=== PATIENT | male | born 1975 | race Caucasian/White ===

== ENCOUNTER 2017-06-18 14:21 | Emergency (ER) | payer MEDICAID, OTHER ==
[2017-06-18] MEDS ORDERED: PROMETHAZINE HCL 25 MG/ML INJ ONE (14:39)
[2017-06-18] MEDS ORDERED: FAMOTIDINE 20 MG TAB PO ONE (14:39)
[2017-06-18] MEDS ORDERED: ONDANSETRON 4 MG/2 ML VIAL IVP ONE (14:39)
[2017-06-18] MEDS ORDERED: PROMETHAZINE HCL 25 MG/ML INJ IVP ONE (14:39)
[2017-06-18] MEDS ORDERED: NS 1,000 ML IV ONE (14:39)
[2017-06-18] MEDS ORDERED: PANTOPRAZOLE SODIUM 40 MG VIAL IVP ONE (14:39)
[2017-06-18] MEDS ORDERED: HALOPERIDOL LACT 5 MG/ML INJ IVP ONE ×2 (14:40→15:47)
[2017-06-18 14:47] LABS: % IMMATURE GRANULYOCYTES 0.4 % (0.0-1.1); ABSOLUTE IMMATURE GRANULOCYTES 0.06 10^3/uL (0.00-0.10); ADD DIFF? NO; ADD MORPH? NO; ADD SCAN? NO; ATYPICAL LYMPHOCYTE FLAG 0 (0-99); FRAGMENT RBC FLAG 0 (0-99); HEMATOCRIT 44.1 % (40.0-51.0); HEMOGLOBIN 15.8 g/dL (13.7-17.5); LEFT SHIFT FLG 0 (0-99); LIPEMIA HEMOLYSIS FLAG 90 (0-99); MEAN CELL HEMOGLOBIN 32.1 pg (27.9-34.1); MEAN CELL HEMOGLOBIN CONCENTR. 35.8 g/dL (32.4-36.7); MEAN CELL VOLUME 89.6 fL (81.5-99.8); MEAN PLATELET VOLUME 10.3 fL (8.7-11.7); PLATELET CLUMPS FLAG 0 (0-99); PLATELET COUNT 279 10^3/uL (150-400); RED BLOOD CELL COUNT 4.92 10^6/uL (4.40-6.38); RED CELL DISTRIBUTION WIDTH 12.6 % (11.5-15.2)
--- NOTE | 2017-06-18 14:47 | EDPHY ---
H & P Smoking Status: Heavy smoker Time Seen by Provider: 06/18/17 14:27 HPI/ROS: HPI Vomiting, upper abdominal discomfort. 42-year-old male from the office of his primary care physician Dr. Morris. Patient presented to the office with complaint of intractable vomiting and epigastric discomfort. The patient was seen in the emergency department at [facility] yesterday for the same complaint. He was noted to have a leukocytosis but otherwise his blood work including lipase and LFTs were unremarkable. He had a nonsurgical abdomen. He had complete resolution of his symptoms in the emergency department at that time after medical treatment and was discharged. He was seen at [facility] emergency department for the same complaint 3 days ago on June 14. Included in his workup at that time with blood work was a CT of his abdomen and pelvis with contrast. The appendix was well visualized and was normal. This study other than a fatty liver showed no acute pathology. He reports that he felt better after his emergency department yesterday at [facility]. He was given antiemetics and a narcotic pain medication. He reports his last meal was some soup last night. He reports that he felt nauseous when he woke up this morning and then started vomiting again at 1:00 p.m. and has not been able to stop. 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 ROS: Constitutional: No fever, no chills. No weakness. Eyes: No discharge. No changes in vision. ENT: No sore throat. No nasal congestion or rhinorrhea. Respiratory: No cough. No shortness of breath. Cardiac: No chest pain, no palpitations. Gastrointestinal: As above, no diarrhea. Genitourinary: No hematuria. No dysuria or increased frequency with urination. Musculoskeletal: No back pain. No neck pain. No myalgias or arthralgias. Skin: No rashes. Neurological: No headache. No focal weakness or altered sensation. Past medical history: Includes arthritis, back pain, chronic abdominal pain, chronic pain, fatty liver, GERD without esophagitis, psoriasis. Social history: He is . He is a smoker. Denies alcohol use. Smokes marijuana. Physical Exam: General Appearance: Alert, no distress. This patient is responding to questions appropriately and in full sentences. This patient appears well- hydrated and well-nourished. Eyes: Pupils equal and round no pallor or injection. No lid edema, erythema or injection. ENT, Mouth: Mucous membranes are moist. The pharyngeal tissues are unremarkable. No edema or swelling. No asymmetry suggestive of abscess. No erythema or exudates. Respiratory: There are no retractions, lungs are clear to auscultation with good air movement bilaterally. Cardiovascular: Regular rate and rhythm. No murmur. Gastrointestinal: Abdomen is soft and nontender, no masses, bowel sounds normal. No focal tenderness at McBurney's point. No Bell sign. Neurological: Motor sensory function is grossly intact. Cranial nerves are normal. Gait is normal. Skin: Warm and dry, no rashes. Musculoskeletal: Neck is supple and nontender. Extremities are symmetrical. All joints range without pain or impingement. Psychiatric: No agitation. No depression. Database: EKG: Imaging: Procedures: Emergency department course: 2:45 p.m., IV placed. He was started on IV normal saline with 1-2 L to be given over the next 1-2 hours. Initial medications will include IV Protonix, IV Pepcid, IV Zofran, Phenergan and Haldol. His vital signs have been reviewed. He is moderately hypertensive in triage. Vital signs are otherwise normal. 3:00 p.m., the patient has just been medicated. Blood work is pending. Care turned over to Dr. Emil Yuen at this time. Differential Diagnosis: The differential diagnosis on this patient includes but is not limited to cyclic vomiting syndrome, cannabis associated hyperemesis syndrome, gastritis. Bowel obstruction, volvulus, appendicitis, cholecystitis, other surgical etiology unlikely. This represents a partial list of diagnoses considered. These considerations are based on history, physical exam, past history, reassessment and diagnostic testing. (Edil Nunez) Constitutional: Initial Vital Signs Temperature (C) 37 C 06/18/17 14:25 Heart Rate 77 06/18/17 14:25 Respiratory Rate 18 06/18/17 14:25 Blood Pressure 170/100 H 06/18/17 14:25 O2 Sat (%) 97 06/18/17 14:25 O2 Delivery Mode Room Air Allergies/Adverse Reactions: NSAIDS (Non-Steroidal Anti-Inflamma Allergy (Verified 06/18/17 14:33) Home Medications: Medication Instructions Recorded Compazine 10mg (*) 06/18/17 Dicyclomine 06/18/17 Ondansetron 06/18/17 PROMETHAZINE HCL 06/18/17 Pantoprazole Sodium 06/18/17 Probiotic Acidophilus 06/18/17 Promethazine 25Mg Supp Prepk#4 1 btl TAKEHOME Q6 PRN #1 btl 06/18/17 [Phenergan 25Mg Supp Prepack#4] Promethazine HCl [Phenergan 50mg 50 mg PO Q6 PRN #6 tablet 06/18/17 tab] Zanaflex 06/18/17 Medical Decision Making ED Course/Re-evaluation: Patient had ongoing symptoms of nausea treated with an additional dose of Haldol and Benadryl IV with relief. He tolerated p.o. intake thereafter without emesis. Review of his metabolic panel reveals no significant abnormalities. Also no significant abnormalities on his urinalysis. Discussion: Patient with presentation consistent with his recurrence hyper emesis with dehydration improved with treatment. (Jerome Yuen) - Data Points Laboratory Results: Laboratory Results 06/18/17 14:40 06/18/17 14:40 06/18/17 06/18/17 06/18/17 16:00 14:40 14:40 WBC 16.29 10^3/uL H 10^3/uL (3.80-9.50) RBC 4.92 10^6/uL 10^6/uL (4.40-6.38) Hgb 15.8 g/dL g/dL (13.7-17.5) Hct 44.1 % % (40.0-51.0) MCV 89.6 fL fL (81.5-99.8) MCH 32.1 pg pg (27.9-34.1) MCHC 35.8 g/dL g/dL (32.4-36.7) RDW 12.6 % % (11.5-15.2) Plt Count 279 10^3/uL 10^3/uL (150-400) MPV 10.3 fL fL (8.7-11.7) Neut % (Auto) 77.1 % H % (39.3-74.2) Lymph % (Auto) 17.2 % % (15.0-45.0) Cross % (Auto) 4.8 % % (4.5-13.0) Eos % (Auto) 0.2 % L % (0.6-7.6) Baso % (Auto) 0.3 % % (0.3-1.7) Nucleat RBC Rel Count 0.0 % % (0.0-0.2) Absolute Neuts (auto) 12.57 10^3/uL H 10^3/uL (1.70-6.50) Absolute Lymphs (auto) 2.80 10^3/uL 10^3/uL (1.00-3.00) Absolute Monos (auto) 0.78 10^3/uL 10^3/uL (0.30-0.80) Absolute Eos (auto) 0.03 10^3/uL 10^3/uL (0.03-0.40) Absolute Basos (auto) 0.05 10^3/uL 10^3/uL (0.02-0.10) Absolute Nucleated RBC 0.00 10^3/uL 10^3/uL (0-0.01) Immature Gran % 0.4 % % (0.0-1.1) Immature Gran # 0.06 10^3/uL 10^3/uL (0.00-0.10) Sodium 144 mEq/L mEq/L (134-144) Potassium 3.7 mEq/L mEq/L (3.5-5.2) Chloride 105 mEq/L mEq/L (97-110) Carbon Dioxide 20 mEq/l L mEq/l (22-31) Anion Gap 19 mEq/L H mEq/L (8-16) BUN 12 mg/dL mg/dL (7-23) Creatinine 0.8 mg/dL mg/dL (0.7-1.3) Estimated GFR > 60 Glucose 126 mg/dL H mg/dL (70-100) Calcium 9.6 mg/dL mg/dL (8.5-10.4) Total Bilirubin 0.9 mg/dL mg/dL (0.1-1.4) Conjugated Bilirubin 0.2 mg/dL mg/dL (0.0-0.5) Unconjugated Bilirubin 0.7 mg/dL mg/dL (0.0-1.1) AST 33 IU/L IU/L (17-59) ALT 53 IU/L IU/L (21-72) Alkaline Phosphatase 62 IU/L IU/L (38-126) Total Protein 7.2 g/dL g/dL (6.3-8.2) Albumin 4.5 g/dL g/dL (3.5-5.0) Lipase 91 IU/L IU/L (23-300) Urine Color YELLOW Urine Appearance CLEAR Urine pH 6.5 (5.0-7.5) Ur Specific [place] 1.010 (1.002-1.030) Urine Protein NEGATIVE (NEGATIVE) Urine Ketones NEGATIVE (NEGATIVE) Urine Blood TRACE H (NEGATIVE) Urine Nitrate NEGATIVE (NEGATIVE) Urine Bilirubin NEGATIVE (NEGATIVE) Urine Urobilinogen 0.2 EU EU (0.2-1.0) Ur Leukocyte Esterase NEGATIVE (NEGATIVE) Urine RBC OCCASIONAL /hpf /hpf (0-3) Urine WBC NONE SEEN /hpf /hpf (0-3) Ur Epithelial Cells TRACE /lpf /lpf (NONE-1+) Urine Mucus 1+ /lpf /lpf (NONE-1+) Urine Glucose NEGATIVE (NEGATIVE) Medications Given: Discontinued Medications Diphenhydramine HCl (Benadryl Injection) 50 mg IVP EDNOW ONE Stop: 06/18/17 15:49 Last Admin: 06/18/17 15:54 Dose: 50 mg Famotidine (Pepcid) 20 mg PO EDNOW ONE Stop: 06/18/17 14:40 Last Admin: 06/18/17 14:50 Dose: 20 mg Haloperidol Lactate (Haldol Injection) 2.5 mg IVP EDNOW ONE Stop: 06/18/17 14:41 Last Admin: 06/18/17 14:49 Dose: 2.5 mg Haloperidol Lactate (Haldol Injection) 5 mg IVP EDNOW ONE Stop: 06/18/17 15:48 Last Admin: 06/18/17 15:53 Dose: 5 mg Sodium Chloride (Ns) 1,000 mls @ 0 mls/hr IV EDNOW ONE; Wide Open PRN Reason: Protocol Stop: 06/18/17 14:40 Last Admin: 06/18/17 15:30 Dose: 1,000 mls Sodium Chloride (Ns) 1,000 mls @ 0 mls/hr IV EDNOW ONE; Wide Open PRN Reason: Protocol Stop: 06/18/17 14:40 Last Admin: 06/18/17 15:35 Dose: 1,000 mls Ondansetron HCl (Zofran) 4 mg IVP EDNOW ONE Stop: 06/18/17 14:40 Last Admin: 06/18/17 14:51 Dose: Not Given Pantoprazole Sodium (Protonix) 40 mg IVP EDNOW ONE Stop: 06/18/17 14:40 Last Admin: 06/18/17 14:49 Dose: 40 mg Promethazine HCl (Phenergan) 6.25 mg IVP EDNOW ONE Stop: 06/18/17 14:40 Last Admin: 06/18/17 14:43 Dose: 6.25 mg Departure - Departure Disposition: Home, Routine, Self-Care Clinical Impression: Dehydration Vomiting Qualifiers: Vomiting type: unspecified Vomiting Intractability: non-intractable Nausea presence: with nausea Qualified Code(s): R11.2 - Nausea with vomiting, unspecified Condition: Good Instructions: Acute Nausea and Vomiting (ED) Additional Instructions: Diagnosis: Cyclic hyperemesis 2. Dehydration Plan: Phenergan pills or suppositories 1/6 hours as needed for nausea or vomiting. Light diet to feel improved Follow up with primary care physician Return for any significant worsening despite the treatment plan Referrals: Lino Morris MD [Primary Care Provider] - As per Instructions Prescriptions: Promethazine 25Mg Supp Prepk#4 [Phenergan 25Mg Supp Prepack#4] 1 btl TAKEHOME Q6 PRN #1 btl PRN Reason: vomiting Promethazine HCl [Phenergan 50mg tab] 50 mg PO Q6 PRN #6 tablet PRN Reason: nausea
[2017-06-18] MEDS: NS 1,000 ML IV ONE ×2 (14:49→15:30)
[2017-06-18 15:00] LABS: ALANINE AMINOTRANSFERASE 53 IU/L (21-72); ALBUMIN 4.5 g/dL (3.5-5.0); ALKALINE PHOSPHATASE 62 IU/L (38-126); ANION GAP 19 mEq/L (8-16); ASPARTATE AMINOTRANSFERASE 33 IU/L (17-59); BILIRUBIN,TOTAL 0.9 mg/dL (0.1-1.4); BILIRUBIN-CONJUGATED 0.2 mg/dL (0.0-0.5); BILIRUBIN-UNCONJUGATED 0.7 mg/dL (0.0-1.1); CALCIUM 9.6 mg/dL (8.5-10.4); CARBON DIOXIDE 20 mEq/l (22-31); CHLORIDE 105 mEq/L (97-110); CREATININE 0.8 mg/dL (0.7-1.3); GLOMERULAR FILTRATION RATE > 60; GLUCOSE 126 mg/dL (70-100); POTASSIUM 3.7 mEq/L (3.5-5.2); SODIUM 144 mEq/L (134-144); TOTAL PROTEIN 7.2 g/dL (6.3-8.2)
[2017-06-18 16:18] LABS: COLOR YELLOW; LEUKOCYTE ESTERASE,URINE NEGATIVE (NEGATIVE); NITRITE,URINE NEGATIVE (NEGATIVE); PH,URINE 6.5 (5.0-7.5)
[2017-06-18 16:26] LABS: MUCUS 1+ /lpf (NONE-1+); RBC,URINE OCCASIONAL /hpf (0-3); WBC,URINE NONE SEEN /hpf (0-3)
[2017-06-18 17:19] VITALS: TEMP 98.4
[2017-06-18 18:16] VITALS: BP 142/85; PULSE 81; RESP 18; O2SAT 96
== END 2017-06-18 18:14 | disposition home or self-care (01) ==
LOC: CED 14:21
DX: E86.0 Dehydration (principal); E86.9 Volume depletion, unspecified; F17.200 Nicotine dependence, unspecified, uncomplicated
CPT/HCPCS: 80048-PO; 80076-PO; 81003-PO; 81015-PO; 83690-PO; 85025-PO; 96374; J1200; J2550